=== PATIENT | female | born 1990 | race Two or more races ===

== ENCOUNTER 2023-03-10 15:23 | Emergency (ER) | payer OTHER ==
[~2023-03-10] VITALS: Ht 182.9 cm; Wt 145.1 kg
[2023-03-10] MEDS ORDERED: XYZAL5 MG PO (16:30)
[2023-03-10] MEDS ORDERED: CYMBALTA30 MG PO (16:30)
[2023-03-10 18:47] LABS: HEMATOCRIT 43.7 % (36.0-45.00); HEMOGLOBIN 14.6 g/dL (12.0-15.00); MEAN CELL VOLUME 78.1 fL (80.00-100.00); MEAN CORPUSCULAR HGB CONC 33.4 g/dl (32.0-36.0); PLATELET COUNT 238 K/uL (150-450); RED CELL DISTRIBUTION WIDTH 15.1 % (11.5-14.5)
[2023-03-10 19:01] LABS: CALCIUM 8.4 mg/dL (8.5-10.1); CREATININE SERUM 0.88 mg/dL (0.55-1.02); GFR 74.46; POTASSIUM 3.7 mEq/L (3.5-5.1)
[2023-03-10 19:19] LABS: PH,URINE 6.5 (5.0-8.0); URINE APPEARANCE Clear; URINE BILIRRUBIN Negative (NEGATIVE); URINE BLOOD Moderate; URINE COLOR Yellow; URINE GLUCOSE Negative (NEGATIVE); URINE LEUKOCYTE Negative; URINE NITRATE Negative; URINE PROTEIN Negative (NEGATIVE); URINE UROBILINOGEN 0.2 E.U./dl
[2023-03-10 19:23] LABS: URINE BACTERIA 464.9 uL (0.0-1933); URINE RBC 6.8 uL (0.0-20.8); URINE WBC 4.9 uL (0.0-23.2)
[2023-03-10] MEDS ORDERED: PEPCID20 MG PO (20:18)
[2023-03-10] MEDS ORDERED: ZOFRAN8 MG PO (20:18)
== END 2023-03-10 20:51 | disposition home or self-care (01) ==
LOC: ER 15:23
PROVIDERS: General Practice
DX: K52.89 Other specified noninfective gastroenteritis and colitis (principal); Z91.013 Allergy to seafood